=== PATIENT | male | born 1960 | race Caucasian/White ===

== ENCOUNTER 2017-03-27 09:16 | Inpatient (IN) | payer MEDICARE ==
[~2017-03-27] VITALS: Ht 177.8 cm
[2017-03-27 15:21] VITALS: BP 149/86
[2017-03-27 16:02] LABS: % SATURATION 9 % (15-55); IRON 13 ug/dl (35-150); TOTAL IRON BIND CAPACITY 133 ug/dl (260-445); UNSAT IRON BIND CAPACITY 120 ug/dl (150-375)
[2017-03-27 16:30] VITALS: BP 150/80
[2017-03-27 20:00] VITALS: BP 142/84
[2017-03-28 04:00] VITALS: BP 151/88
[2017-03-28 05:41] LABS: BASOPHILS 0.2 % (0-2); EOSINOPHILS 2.6 % (0-7); HEMATOCRIT 32.2 % (42.0-54.0); HEMOGLOBIN 10.1 g/dL (13.5-17.5); IMMATURE GRANULOCYTES 0.6 % (0-5); LYMPHOCYTES 16.4 % (15-50); MCH 25.5 pg (26.0-34.0); MCHC 31.4 g/dL (31.0-37.0); MCV 81.3 fL (80.0-100.0); MEAN PLATELET VOLUME 10.2 fL (7.4-10.4); MONOCYTES 8.9 % (2-11); NEUTROPHILS 71.3 % (40-80); PLATELET COUNT 236 10x3/uL (130-400); RBC 3.96 10x6/uL (4.20-6.10); RDW 14.6 % (11.5-14.5); WBC 6.5 10x3/uL (4.8-10.8)
[2017-03-28 06:11] LABS: ANION GAP 15.4 mmol/L (8-16); CALCIUM 7.8 mg/dL (8.5-10.1); CARBON DIOXIDE 24.6 mmol/L (21.0-32.0); CREATININE - SERUM 1.9 mg/dL (0.6-1.3)
[2017-03-28 08:33] VITALS: BP 146/87
[2017-03-28 12:08] VITALS: BP 127/73
[2017-03-28 15:40] VITALS: BP 102/64
[2017-03-28 20:00] VITALS: BP 134/90
[2017-03-29 04:00] VITALS: BP 132/87
[2017-03-29 04:54] LABS: BASOPHILS 0.3 % (0-2); EOSINOPHILS 2.2 % (0-7); HEMATOCRIT 32.2 % (42.0-54.0); HEMOGLOBIN 9.7 g/dL (13.5-17.5); IMMATURE GRANULOCYTES 0.2 % (0-5); LYMPHOCYTES 16.3 % (15-50); MCH 24.9 pg (26.0-34.0); MCHC 30.1 g/dL (31.0-37.0); MCV 82.8 fL (80.0-100.0); MEAN PLATELET VOLUME 9.8 fL (7.4-10.4); PLATELET COUNT 260 10x3/uL (130-400); RBC 3.89 10x6/uL (4.20-6.10); RDW 14.6 % (11.5-14.5); WBC 5.8 10x3/uL (4.8-10.8)
[2017-03-29 05:08] LABS: ANION GAP 12.1 mmol/L (8-16); CALCIUM 8.1 mg/dL (8.5-10.1); CARBON DIOXIDE 25.5 mmol/L (21.0-32.0); CREATININE - SERUM 1.6 mg/dL (0.6-1.3); POTASSIUM - SERUM 3.6 mmol/L (3.5-5.1)
[2017-03-29] MEDS ORDERED: LINZESS290 MCG PO (07:48)
[2017-03-29] MEDS ORDERED: ZYRTEC10 MG PO (07:49)
[2017-03-29] MEDS ORDERED: COREG6.25 MG PO (07:50)
[2017-03-29] MEDS ORDERED: LIPITOR20 MG PO (07:51)
[2017-03-29] MEDS ORDERED: ASPIRIN325 MG PO (07:51)
[2017-03-29] MEDS ORDERED: KLONOPIN0.5 MG PO (07:52)
[2017-03-29] MEDS ORDERED: ZANTAC 7575 MG PO (07:56)
[2017-03-29] MEDS ORDERED: COLACE100 MG PO (07:57)
[2017-03-29] MEDS ORDERED: NIFEDIPINE ER90 MG PO (07:58)
[2017-03-29] MEDS ORDERED: KEPPRA250 MG PO (07:58)
[2017-03-29] MEDS ORDERED: NEURONTIN600 MG PO (07:58)
[2017-03-29] MEDS ORDERED: MIRALAX17 GM PO (07:59)
[2017-03-29] MEDS ORDERED: CALCIUM OYS SHE1 TAB PO (08:00)
[2017-03-29] MEDS ORDERED: VITAMIN D31000 UNIT PO (08:06)
[2017-03-29] MEDS ORDERED: ANUSOL-HC25 MG RC (08:07)
[2017-03-29] MEDS ORDERED: ARTIFICIAL TEAR15 ML EACH EYE (08:08)
[2017-03-29] MEDS ORDERED: TUCKS MEDICATE1 EACH TOPICAL (08:09)
[2017-03-29] MEDS ORDERED: ULTRAM50 MG PO (08:09)
[2017-03-29] MEDS ORDERED: DULCOLAX10 MG/SUPP RC (08:10)
[2017-03-29] MEDS ORDERED: PREPARATION H S48 EA RC (08:10)
[2017-03-29] MEDS ORDERED: DULCOLAX5 MG PO (08:11)
[2017-03-29] MEDS ORDERED: NYSTATIN15 GM TOPICAL (08:12)
[2017-03-29] MEDS ORDERED: CELEXA20 MG PO (08:13)
[2017-03-29] MEDS ORDERED: REMERON45 MG PO (08:14)
[2017-03-29 09:29] VITALS: BP 136/86
[2017-03-29 14:18] VITALS: BP 185/84
[2017-03-29 15:11] VITALS: Ht 177.8 cm
[2017-03-29 20:00] VITALS: BP 113/77
[2017-03-30 04:00] VITALS: BP 114/71
[2017-03-30 06:51] LABS: BASOPHILS 0.2 % (0-2); EOSINOPHILS 3.2 % (0-7); HEMATOCRIT 31.8 % (42.0-54.0); HEMOGLOBIN 9.9 g/dL (13.5-17.5); IMMATURE GRANULOCYTES 0.4 % (0-5); LYMPHOCYTES 28.1 % (15-50); MCH 25.4 pg (26.0-34.0); MCHC 31.1 g/dL (31.0-37.0); MCV 81.7 fL (80.0-100.0); MEAN PLATELET VOLUME 10.5 fL (7.4-10.4); MONOCYTES 12.6 % (2-11); NEUTROPHILS 55.5 % (40-80); PLATELET COUNT 259 10x3/uL (130-400); RBC 3.89 10x6/uL (4.20-6.10); RDW 14.4 % (11.5-14.5); WBC 5.7 10x3/uL (4.8-10.8)
[2017-03-30 07:22] LABS: ANION GAP 13.7 mmol/L (8-16); CALCIUM 8.4 mg/dL (8.5-10.1); CREATININE - SERUM 1.5 mg/dL (0.6-1.3); POTASSIUM - SERUM 3.7 mmol/L (3.5-5.1)
[2017-03-30 08:26] VITALS: BP 134/82
[2017-03-30 11:56] VITALS: BP 125/81
[2017-03-30 16:17] VITALS: BP 144/95
[2017-03-30 22:57] VITALS: BP 153/95
[2017-03-31 02:03] VITALS: BP 173/101
[2017-03-31 05:25] LABS: BASOPHILS 0.3 % (0-2); EOSINOPHILS 4.7 % (0-7); HEMATOCRIT 33.9 % (42.0-54.0); HEMOGLOBIN 10.4 g/dL (13.5-17.5); IMMATURE GRANULOCYTES 0.8 % (0-5); LYMPHOCYTES 26.9 % (15-50); MCH 25.4 pg (26.0-34.0); MCHC 30.7 g/dL (31.0-37.0); MCV 82.7 fL (80.0-100.0); MEAN PLATELET VOLUME 10.2 fL (7.4-10.4); MONOCYTES 10.2 % (2-11); NEUTROPHILS 57.1 % (40-80); PLATELET COUNT 269 10x3/uL (130-400); RDW 14.8 % (11.5-14.5); WBC 7.1 10x3/uL (4.8-10.8)
[2017-03-31 05:47] LABS: ANION GAP 12.6 mmol/L (8-16); CREATININE - SERUM 1.5 mg/dL (0.6-1.3); POTASSIUM - SERUM 3.6 mmol/L (3.5-5.1)
[2017-03-31 06:03] VITALS: BP 173/101
[2017-03-31 11:00] VITALS: BP 155/93
[2017-03-31 16:23] VITALS: BP 148/90
[2017-03-31 20:00] VITALS: BP 148/96; BP 154/90
[2017-03-31 23:58] VITALS: BP 147/81
[2017-04-01 04:00] VITALS: BP 141/75
[2017-04-01 05:56] LABS: BASOPHILS 0.1 % (0-2); HEMATOCRIT 34.6 % (42.0-54.0); HEMOGLOBIN 10.6 g/dL (13.5-17.5); IMMATURE GRANULOCYTES 1.4 % (0-5); LYMPHOCYTES 17.9 % (15-50); MCH 25.2 pg (26.0-34.0); MCHC 30.6 g/dL (31.0-37.0); MCV 82.4 fL (80.0-100.0); MEAN PLATELET VOLUME 10.8 fL (7.4-10.4); MONOCYTES 6.7 % (2-11); NEUTROPHILS 68.9 % (40-80); PLATELET COUNT 324 10x3/uL (130-400); RDW 14.9 % (11.5-14.5); WBC 11.4 10x3/uL (4.8-10.8)
[2017-04-01 05:58] LABS: ANION GAP 13.4 mmol/L (8-16); CALCIUM 8.1 mg/dL (8.5-10.1); CARBON DIOXIDE 25.4 mmol/L (21.0-32.0); CREATININE - SERUM 1.6 mg/dL (0.6-1.3); POTASSIUM - SERUM 3.8 mmol/L (3.5-5.1)
[2017-04-01 08:13] VITALS: BP 144/89
[2017-04-01] MEDS ORDERED: TESSALON PERLE100 MG PO (11:32)
[2017-04-01] MEDS ORDERED: GUAIFENESI100 MG/5 M PO (11:32)
[2017-04-01] MEDS ORDERED: ZITHROMAX250 MG PO (11:33)
[2017-04-01] MEDS ORDERED: FLORAJEN3 CAPS460 MG PO (11:33)
[2017-04-01] MEDS ORDERED: OMNICEF300 MG PO (11:34)
[2017-04-01] MEDS ORDERED: IPRAT-ALBUT 0.5-3 ML UPD (11:34)
[2017-04-01] MEDS ORDERED: BROVANA15 MCG/2 M INH (11:34)
[2017-04-01 12:13] VITALS: BP 159/91
== END 2017-04-01 16:07 | DRG 193 ==
LOC: D.MS 09:16
PROVIDERS: Internal Medicine Nephrology
PROC: 0T2BX0Z Change Drainage Device in Bladder, External Approach (ICD-10-PCS; principal; 2017-03-28)
DX: J18.1 Lobar pneumonia, unspecified organism (principal); J96.01 Acute respiratory failure with hypoxia; R53.2 Functional quadriplegia; I69.354 Hemiplegia and hemiparesis following cerebral infarction affecting left non-dominant side; E44.0 Moderate protein-calorie malnutrition; N17.9 Acute kidney failure, unspecified; M62.40 Contracture of muscle, unspecified site; I12.9 Hypertensive chronic kidney disease with stage 1 through stage 4 chronic kidney disease, or unspecified chronic kidney disease; N18.3 Chronic kidney disease, stage 3 (moderate); G40.909 Epilepsy, unspecified, not intractable, without status epilepticus; D50.9 Iron deficiency anemia, unspecified